=== PATIENT | male | born 2000 | race Two or more races ===

== ENCOUNTER 2024-09-04 11:07 | Inpatient (IN) | payer OTHER ==
[~2024-09-04] VITALS: Ht 177.8 cm; Wt 78.0 kg
--- NOTE | 2024-09-04 11:27 | NUR ---
PTE REFIERE QUE TIENE DOLOR ABDOMINAL DESDE HACE DOS DEAN PTE REFIRIDO POR EL DR MARTINEZ.
--- NOTE | 2024-09-04 12:18 | NUR ---
KELSIE STRAUSS EDUCA A PACIENTE SOBRE [place] [facility], STEPHEN REFIERE ENTENDER. SE EXTRAEN MUESTRAS DE LABORATORIO Y SE ADMINISTRAN MEDICAMENTOS GENO ORDEN MEDICA. PENDIENTE U/A. SE HACE ENTREGA DE CONTRASTE PO.
[2024-09-04 12:40] LABS: BASO % 0.3 % (0.1-1.2); EOS # 0.07 (0.04-0.54); EOS % 1.0 % (0.7-7.0); LYMPH # 1.33 (1.18-3.74); LYMPH % 18.8 % (19.3-53.1); MEAN PLATELET VOLUME 9.40 fl (9.4-12.4); MONO # 0.49 (0.24-0.82); MONO % 6.9 % (4.7-12.5); NEUT # 5.15 (1.56-6.13); NEUT % 72.7 % (34.0-71.1); RED CELL DISTRIBUTION WIDTH 11.7 % (11.6-14.4)
[2024-09-04 13:01] LABS: BUN CREA RATIO 10.0 (7.0-25.0); CREATININE SERUM 1.21 mg/dL (0.70-1.30); GFR 74.31; GLUCOSE FASTING 87.0 mg/dL (65-100); OSMOLALITY SERUM 284.0 MOSM/KG (275-295)
[2024-09-04 13:54] LABS: URINE APPEARANCE Clear; URINE BILIRRUBIN Negative (NEGATIVE); URINE BLOOD Negative; URINE COLOR Yellow; URINE GLUCOSE Negative (NEGATIVE); URINE KETONE Negative (NEGATIVE); URINE LEUKOCYTE Negative; URINE NITRATE Negative; URINE PROTEIN Negative (NEGATIVE); URINE UROBILINOGEN 1.0 E.U./dl
[2024-09-04 14:00] LABS: URINE BACTERIA 7.1 uL (0.0-1933)
[2024-09-04 14:02] LABS: URINE CAST 0.00 uL (0.0-1.40); URINE EPITHELIAL CELLS 0.4 uL (0.0-38.8); URINE RBC 0.1 uL (0.0-20.8); URINE WBC 0.7 uL (0.0-23.2)
[2024-09-04] MEDS ORDERED: FAMOTIDINE/PF 20 MG in 0.9 % SODIUM CHLORIDE 8 ML IV PUSH SCH (17:35)
[2024-09-04] MEDS ORDERED: ONDANSETRON HCL 4 MG in 0.9 % SODIUM CHLORIDE 50 ML IV PRN (17:45)
[2024-09-04] MEDS ORDERED: MORPHINE SULFATE 4 MG/ML CARTRIDGE IV PRN (17:45)
[2024-09-04] MEDS ORDERED: KETOROLAC TROMETHAMINE 15 MG VIAL IU ONE (17:45)
[2024-09-04] MEDS ORDERED: KETOROLAC TROMETHAMINE 30 MG VIAL IV ONE (17:45)
[2024-09-04] MEDS ORDERED: 0.9 % SODIUM CHLORIDE 1,000 ML IV SCH (17:45)
[2024-09-04] MEDS ORDERED: ACETAMINOPHEN 500 MG GEL..CAP PO PRN (17:45)
[2024-09-04] MEDS ORDERED: PIPERACILLIN/TAZOBACTAM SODIUM 3.375 GM in 0.9 % SODIUM CHLORIDE 100 ML IV SCH (18:00)
[2024-09-04 19:24] LABS: INR 1.1
[2024-09-04 19:36] VITALS: BP 119/75; O2SAT 99
[2024-09-04 22:27] VITALS: BP 125/76; O2SAT 98
[2024-09-05 01:51] VITALS: BP 108/63; O2SAT 97
[2024-09-05 08:38] VITALS: BP 105/50; O2SAT 99
[2024-09-05] MEDS ORDERED: CEFAZOLIN SODIUM 1,000 MG VIAL IV ONE (14:00)
[2024-09-05] MEDS ORDERED: MORPHINE SULFATE 4 MG/ML VIAL IV ONE (14:50)
[2024-09-05 16:47] VITALS: BP 93/54; O2SAT 97
[2024-09-06 01:48] VITALS: BP 108/61; O2SAT 99
[2024-09-06 08:42] VITALS: BP 100/58; O2SAT 99
== END 2024-09-06 10:31 | disposition home or self-care (01) | DRG 399 ==
LOC: ER 11:07 → MEDI 17:54
PROVIDERS: Emergency Medicine; General Practice; Student in an Organized Health Care Education/Training Program; ADMIT Student in an Organized Health Care Education/Training Program; ATTEND Student in an Organized Health Care Education/Training Program
PROC: BW21YZZ Computerized Tomography (CT Scan) of Abdomen and Pelvis using Other Contrast (ICD-10-PCS; 2024-09-04)
PROC: 0DTJ4ZZ Resection of Appendix, Percutaneous Endoscopic Approach (ICD-10-PCS; principal; 2024-09-05 09:15)
DX: K35.80 Unspecified acute appendicitis (principal); Z91.013 Allergy to seafood